=== PATIENT | female | born 1985 | race Caucasian/White ===

== ENCOUNTER 2019-06-25 14:21 | Emergency (ER) | payer OTHER ==
[~2019-06-25] VITALS: Ht 160 cm; Wt 117.0 kg
[~2019-06-25 14:21] MED LIST: COLACE100 MG PO; FLO4 PO; IBUPROFEN400 MG PO; NORCO1 TA2 PO; ZOF4 PO
[2019-06-25 14:28] VITALS: Ht 160 cm; Wt 117.0 kg
[2019-06-25 16:41] VITALS: BP 155/74
== END 2019-06-25 16:41 | disposition home or self-care (01) ==
LOC: ED 14:21
DX: J18.9 Pneumonia, unspecified organism (principal); F17.210 Nicotine dependence, cigarettes, uncomplicated; Z87.442 Personal history of urinary calculi
CPT/HCPCS: J0696